=== PATIENT | male | born 1970 | race Caucasian/White ===

== ENCOUNTER 2022-10-09 13:29 | Outpatient (CLI) | payer OTHER, SELFPAY ==
--- NOTE | 2022-10-09 14:00 | CRLHL7_ITS ---
For Patients: As a result of the Century Cures Act, medical imaging exams and procedure reports are released immediately into your electronic medical record. You may view this report before your referring provider. If you have questions, please contact your health care provider. INDICATION: SCROTAL SWELLING, LEFT SIDED PALPABLE LUMP COMPARISON: none TECHNIQUE: Lopez scale imaging was performed of the scrotum. In addition color Doppler and spectral Doppler analysis was performed of the testes. FINDINGS: The right testicle measures 4.2 x 1.7 x 2.1 cm. The left testicle measures 3.6 x 2.3 x 3.0 cm. Normal Doppler evaluation of both testicles without torsion. The right testicular echotexture is somewhat heterogeneous without intratesticular mass. Normal left testicular echotexture. Multiple epididymal cysts are present bilaterally measuring up to 1.9 cm on the right. There is a complex heterogeneous palpable mass within the inferior left hemiscrotum inferior to the testicle measuring approximately 1.7 x 1.2 x 1.3 cm. The echotexture is primarily hypoechoic although there are areas of mixed echotexture surrounding this area. A small left hydrocele is present. No varicocele. IMPRESSION: Predominantly hypoechoic solid nodule within the inferior left hemiscrotum inferior to the testicle measuring 1.7 cm. Adjacent heterogeneous tissue was present along with a small left hydrocele. No testicular mass. Urology consultation is recommended. Dictated by Benji Hallman MD @ 10/10/2022 10:38:32 AM (Electronically Signed)
== END 2022-10-09 13:30 | disposition home or self-care (01) ==
PROVIDERS: PCP Family Medicine; Visit Provider Family Medicine
DX: N50.89 Other specified disorders of the male genital organs (principal)
CPT/HCPCS: 76870; 93976